=== PATIENT | male | born 1945 | race Caucasian/White ===

== ENCOUNTER → 2017-01-03 | Outpatient (CLI) | payer MEDICARE, BC ==
--- NOTE | 2017-02-13 03:01 | HKNOTE ---
DATE OF SERVICE: 01/03/2017 MAIN COMPLAINT: Pain in the right knee. HISTORY OF MAIN COMPLAINT: The patient is a 71-year-old male who complains of pain in his right kne e. On 11/12 of this past year, he did a "lunge" while working out. He heard a "crunching sound in my knee." He had immediate pain, the knee swelled up and he had to use a cane for a few days. PRESENT COMPLAINTS: Patient's pain is localized to the knee without radiation up or down the leg. Pain currently is mild, but was severe. Pain is aggravated by walking and any attempted squatting. He is not able to "sit on my heels." He is also no longer able to lunge. The knee does not lock, nor does it feel unstable. He does get rest pain and night pain. He takes valerian and/or ibuprofe n. Heat, ice and Icy Hot seem to help. He does have a history of pain in the lower back for which he uses arnica. He has no numbness or tingling in his legs. On a level surface, he can walk a mile if he has to. He does not use a walking aid. He is not limping. He does not have a shoe lift. uJan Carlos e can clip his toenails and tie his shoelaces. SPORTING ACTIVITIES: Swimming, running, biking (currently not). PAST ORTHOPEDIC HISTORY: Reconstructive surgery on his right wrist on 07/14/2003 at the [facility] in [place]. PRIOR CORTISONE INJECTIONS: Once. ALCOHOL INTAKE: Minimal (1 drink per day). OTHER JOINT PROBLEMS: Achilles tendinitis of the left foot. Right buttock pain at night. BLOOD TESTS FOR ARTHRITIS: None. PRIOR INJURIES TO HIPS OR KNEES: None. WORK STATUS: The patient is a retired teacher. PAST MEDICAL HISTORY: Negative. PAST SURGICAL HISTORY: Wrist surgery, 07/14/2003. DRUG ALLERGIES: SULFA, CLINDAMYCIN. MEDICATIONS: 1. Benadryl. 2. Aspirin. 3. Ibuprofen. 4. Melatonin. 5. Aller-Flex. 6. Vitamin E. 7. Vitamin C. 8. Calcium. 9. Fish oil. 10. Daily multivitamin. FAMILY HISTORY: Father at unstated age of cancer. Mother at unstated age of cancer. SYSTEMS REVIEW: Excess urination, hemorrhoids, varicose veins, gait disturbance. HABITS: Patient smoked "in my 20s." Alcohol intake, 1 alcoholic beverage per day. ORTHOPHOTOGRAPHY TECHNICIAN: Dr. Marcos Elizabeth, [address], [address], [place], [place] PHYSICAL EXAMINATION: GENERAL: The patient is an extremely fit looking and youthful 71-year-old male. His gait is normal . He walks without a walking aid. VITAL SIGNS: Height 5 feet 7 inches, weight 163 pounds. Blood pressure 110/70, temperature 98.0. HIPS: Both hips have a full range of motion without pain. RIGHT KNEE: The right knee shows normal alignment. Extension full, but painful. Flexion lacks 20 de grees (painful). The medial and lateral collateral ligaments and cruciate ligaments are intact. Lach man test is negative. There is 1+ effusion, tender over the medial joint line. There is no scarring , crepitus, or cysts. The patella tracks normally. There is no tenderness on the articular surface o f the patella or in the patellar groove. The Q angle is normal. LEFT KNEE: The left knee shows normal alignment. Active and passive extension is 0 degrees. Active and passive flexion is 135 degrees. The medial and lateral collateral ligaments and cruciate ligamen ts are intact. Sang test is negative. There is no effusion, tenderness, scarring, crepitus, or cy sts. The patella tracks normally. There is no tenderness on the articular surface of the patella or in the patellar groove. The Q angle is normal. IMAGING: Plain x-rays of the right knee obtained on 11/23/2016, show well maintained joint spaces. No significant pathology. A normal knee for a man of his age. An MRI scan of the right knee obtained on 12/13/[address] Breaux as showin. 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 2. Medial meniscus shows complex tearing involving the posterior horn and mid body. 3. Lateral meniscus intact, but shows fraying of the free edge. 4. Ruptured Randall's cyst with fluid tracking along the posteromedial aspect of the knee. DIAGNOSES: 1. Torn medial meniscus of the right knee. 2. Mild degenerative osteoarthritis of the right knee. 3. ALLERGIC TO SULFA DRUGS, CLINDAMYCIN. MANAGEMENT: The patient is advised that radiologically he has a torn medial meniscus. He does not, however, have the classic symptoms of a torn meniscus which include instability or locking. He was advised that MRI scan, while being a miraculous technology, is not perfect and has about a 5% chance of seeing pathology that does not actually exist, and a 5% chance of missing pathology. The patient given an injection of 2 mL of Kenalog and 6 mL of 2% lidocaine into the right knee. If his symptoms persist, or especially if he develops locking or instability of the knee, he will ca ll and we will discuss an arthroscopic evaluation and treatment of the knee. Dictated By: SHIMON CHAPA/KARAN Conf#: [id number] DID#: [id number]
== END | disposition home or self-care (01) ==
LOC: HKI 14:06
DX: S83.231A Complex tear of medial meniscus, current injury, right knee, initial encounter (principal); X50.9XXA Other and unspecified overexertion or strenuous movements or postures, initial encounter; Y93.B9 Activity, other involving muscle strengthening exercises; M17.11 Unilateral primary osteoarthritis, right knee; Z88.2 Allergy status to sulfonamides; M25.561 Pain in right knee; Z87.891 Personal history of nicotine dependence
CPT/HCPCS: 20610; G0463